=== PATIENT | female | born 1965 | race Caucasian/White ===

== ENCOUNTER 2023-03-09 21:25 | Emergency (ER) | payer OTHER ==
[~2023-03-09] VITALS: Ht 165.1 cm; Wt 68.9 kg
[2023-03-09 23:24] VITALS: BP 134/68; TEMP 98; O2SAT 98
== END 2023-03-09 23:24 | disposition home or self-care (01) ==
LOC: ER 21:38
DX: M25.512 Pain in left shoulder (principal); J45.909 Unspecified asthma, uncomplicated
CPT/HCPCS: 73030-TC